=== PATIENT | female | born 1970 | race Caucasian/White ===

== ENCOUNTER 2018-07-01 12:11 | Outpatient (REF) | payer BC, SELFPAY ==
[2018-07-01 18:54] LABS: Cholesterol 175 mg/dL (50-200); Glucose 85 mg/dL (70-100); HDL Cholesterol 105 mg/dL (40-60); LDL CHOLESTEROL 69 mg/dL (<100); TSH (W/Ref FT4) 0.93 uIU/mL (0.358-3.74); Triglyceride 26 mg/dL (30-150)
== END 2018-07-01 12:31 ==
LOC: NCHCN 12:11
PROVIDERS: PCP Nurse Practitioner Family; Visit Provider Nurse Practitioner
DX: Z13.1 Encounter for screening for diabetes mellitus (principal); Z13.29 Encounter for screening for other suspected endocrine disorder; Z13.220 Encounter for screening for lipoid disorders
CPT/HCPCS: 80061; 82947; 83721; 84443

== ENCOUNTER 2018-07-10 12:29 | Outpatient (CLI) | payer BC, SELFPAY ==
--- NOTE | 2018-07-10 13:35 | DI.MAMMO_ITS ---
SYMPTOM/DIAGNOSIS: SCREENING, FOR[facility], [facility], Z00.00 MAMMOGRAMS: Mammograms were interpreted according to the usual protocol including computer analysis with CAD system, tomosynthesis and C view imaging. Comparison is with the prior examinations. No masses or microcalcifications are seen. There is nothing to suggest malignancy. IMPRESSION: Negative mammogram. Routine screening is recommended. Category 1 , breast density C. MQSA ASSESSMENT OF FINDINGS: Negative. Category 1. Patient will receive a letter notifying them of these results. Bi-RADS category C. The breasts are heterogeneously dense, which may obscure small masses.
== END 2018-07-10 12:49 ==
PROVIDERS: PCP Nurse Practitioner Family; Visit Provider Nurse Practitioner
DX: Z00.00 Encounter for general adult medical examination without abnormal findings (principal); Z12.31 Encounter for screening mammogram for malignant neoplasm of breast
CPT/HCPCS: 77063; 77067

== ENCOUNTER 2018-08-19 15:20 | Outpatient (REF) | payer BC, SELFPAY ==
[2018-08-19 19:46] LABS: Abs Immature Grans 0.01 k/cumm (0.0-0.09); Absolute Basophil Count 0.01 k/cumm (0.0-0.2); Absolute Eosinophil Count 0.12 k/cumm (0.0-0.7); Absolute Lymphocyte Count 1.65 k/cumm (1.2-3.4); Absolute Monocyte Count 0.49 k/cumm (0.11-0.7); Absolute Neutrophil Count 4.14 k/cumm (1.2-6.7); Basophils % 0.2; Eosinophils % 1.9; HCT 40.5 % (36.0-46.0); HGB 13.3 g/dL (12.0-15.5); Immature Grans % 0.2; Lymphocytes % 25.7; Mean Corp. HGB Concentration 32.8 g/dL (32.0-36.0); Mean Corpuscular Hemoglobin 32.7 pg (27.0-33.0); Mean Corpuscular Volume 99.5 fL (80-95); Monocytes % 7.6; Neutrophils % 64.4; Platelet Count 163 x1000/uL (130-400); RBC 4.07 m/cumm (4.00-5.20); RBC Distribution Width 13.3 % (11.7-14.6); White Blood Cell Count 6.42 k/cumm (4.4-10.8)
[2018-08-19 19:57] LABS: ALT 26 U/L (12-78); AST 17 U/L (15-37); Albumin 3.9 g/dL (3.4-5.0); Alkaline Phosphatase 43 U/L (46-116); Anion Gap 9.4 mmol/L (3-11); BUN 13 mg/dL (7-18); Bilirubin, Total 0.4 mg/dL (0.2-1.0); CO2 25.6 mmol/L (21.0-32.0); CREATININE 0.67 mg/dL (0.55-1.02); Calcium 8.5 mg/dL (8.5-10.1); Chloride 104 mmol/L (98-107); Glucose 81 mg/dL (70-100); Potassium 4.1 mmol/L (3.5-5.1); Sodium 139 mmol/L (136-145); Total Protein 6.5 g/dL (6.4-8.2)
[2018-08-19 21:06] LABS: ESR 5 MM/HR (0-20)
[2018-08-21 14:14] LABS: ANA Interpretation Negative (NEGAT)
== END 2018-08-19 15:40 ==
LOC: NCHCN 15:20
PROVIDERS: PCP Nurse Practitioner Family; Visit Provider Nurse Practitioner
DX: L29.9 Pruritus, unspecified (principal)
CPT/HCPCS: 80053; 85652; 85025; 86038

== ENCOUNTER 2018-10-13 10:53 | Day surgery (SDC) | payer BC, SELFPAY ==
--- NOTE | 2018-10-13 06:52 | W.COLOREPORT ---
Date of service: 10/13/18 Time of Service: 13:26 Colonoscopy Report Date of procedure: 10/13/18 Pre-op diagnosis general: Colon Cancer screening/ Family history of colon cancer Post-op diagnosis procedure note: other (Colon polyps) Procedure: Colonoscopy with polypectomy by hot snare and cold forceps Surgeon: Nathaly Jaime Anesthesia proc note operative: MAC (Katherine Saravia, POLICE DEPARTMENT SECRETARY/ ASA 2) Estimated blood loss (mL): 5 Pathology: other (3 polyps) Complications: None Disposition: same day Indications: Pleasant 48-year-old female who was seen in the office for a screening colonoscopy. She has a remote family history of colon cancer in a maternal grandmother. Risks, benefits, complications were reviewed with her and she wished to proceed. No guarantees were given or implied. Prep: Miralax/Dulcolax Procedure Start Time: 13:26 Procedure End Time: 13:57 Retraction Time: 17 minutes Findings: 3 polyps removed. One in the ascending colon, one larger adenomatous polyp in the distal transverse colon and 2 small sigmoid polyps Grade 1 internal hemorrhoids Procedure Description: After informed consent was obtained the patient was taken to the procedure room and placed in a left decubitous position. Monitors were applied and a time out was done. The patients name, date of , procedure, allergies to medications and metal in their body was reviewed. The patient was then sedated. Once sedated and comfortable a rectal exam was done. External exam was normal. Internal exam revealed a normal sphincter tone and no palpable masses. The scope was then introduced and retro-flexed. Grade I internal hemorrhoids were identified. The scope was then advanced to the cecum without difficulty. The TI and appendiceal orifice were identified. The prep was good. The scope was then slowly retracted over 17 minutes back into the rectum. Polyps were removed in the ascending, transverse and sigmoid colon. The polyp in the transverse colon was removed with a hot snare, the others with cold forceps. The scope was removed and the patient was woken up and taken back to Same day surgery in stable condition. The patient tolerated the procedure well and there were no immediate complications. Follow up: The patient should follow up in 3-5 years unless they develop changes in bowel habits or other new gastrointestinal complaints.
--- NOTE | 2018-10-13 06:53 | W.PM.DSUDISC ---
Discharge Plan Disposition Patient Disposition: HOME Condition: Good Discharge Details Reason For Visit: SCREENING Attending Provider: Nathaly Jaime Primary Care Provider: Elba Lopez Home Meds and New Rx's Prescriptions: Continued valacyclovir 1,000 MG tablet 1,000 mg PO BID Qty: 20 RF: 0 Discontinued bisacodyl [Dulcolax (bisacodyl)] 5 mg tablet,delayed release (DR/EC) 5 mg PO ONCE Qty: 4 RF: 0 polyethylene glycol 3350 17 gram/dose powder 255 g PO ONCE Qty: 255 RF: 0 Discharge Instructions Instructions: Colonoscopy (DC), Colorectal Polyps (DC) Additional Instructions: Findings: 4 polyps small internal hemorrhoids Follow up: 3-5 years Please call if you develop: fevers >101.5 Nausea or Vomiting Abdominal pain that is not transient DAY SURGERY UNIT POST COLONOSCOPY INSTRUCTIONS 1. Because there will be medication in your system for the next 24 hours, you may feel a little sleepy. Your coordination will be affected. Therefore: a. Do not drive or operate dangerous equipment for 24 hours. b. Do not drink alcohol beverages for 24 hours (not even beer). c. Plan to go home and rest for the day. 2. Generally there are no restrictions on your activity after a day or so has gone by, but you may feel a bit fatigued for a few days. 3 After you arrive home you may have a light meal and return to a normal diet as you can tolerate it without feeling sick to your stomach. 4. After surgery, you may feel pain or discomfort. This should be only transient, but if it persists please contact your doctor. 5. If there are any questions regarding the findings of your procedure, please feel free to contact your doctor. 6. If you are unable to contact your doctor with a problem, contact the hospital at [phone]. 7. Continue all your regular medications unless directed otherwise. I understand the above instructions and have no questions. Signature of Patient or Responsible Adult Escort Date/Time Name of Responsible Adult Escort Signature of Nurse Date/Time Activity:: Activity as Tolerated Diet:: As Tolerated Discharge Orders Discharge Orders: Discharge Order (Routine); Ordered 10/13/18 Ordered By: Nathaly Jiame DS: Diagnosis Discharge Diagnosis (1) Colon polyps: Status: Acute (2) S/P colonoscopy: Status: Acute
[2018-10-13 11:10] VITALS: BP 124/83; PULSE 74; RESP 16; TEMP 36.6; O2SAT 100
[2018-10-13] MEDS: Lactated Ringers 1,000 ML 80 ML IV ×2 (11:50→13:56)
--- NOTE | 2018-10-13 13:34 | BOWEL_PTH ---
PATIENT: Kitty Mesa LOC: [facility] U#:[id number] AGE/SX: 48/F ROOM: RE10/13/[address]: Nathaly Jaime MD : [id number] BED: DIS: 10/13/2018 SPEC #: [id number] RECD: 10/13/18 17:32 STATUS: HERNANDO RE #: [id number] JIN: 10/13/18 13:[address]: Nathaly Jaime DEPT: Surgical Specimen RECD BY: Chiquis Hamilton ENTERED: 10/13/18 17:33 SP TYPE: Bowel OTHR DR: Elba Lopez Tissues: 1 - BIOPSY BOWEL 2 - BIOPSY BOWEL 3 - BIOPSY BOWEL Procedures: GROSS AND MICRO LEVEL 4 Comments: [id number]
[2018-10-13 14:34] VITALS: BP 113/74; PULSE 56; RESP 16; TEMP 36.4; O2SAT 100
== END 2018-10-13 15:22 | disposition home or self-care (01) ==
LOC: SUR 10:53
PROVIDERS: PCP Nurse Practitioner; Visit Provider Surgery
PROC: 0DJD8ZZ Inspection of Lower Intestinal Tract, Via Natural or Artificial Opening Endoscopic (ICD-10-PCS; CPT 45378; principal; 2018-10-13 12:45)
DX: Z12.11 Encounter for screening for malignant neoplasm of colon (principal); D12.3 Benign neoplasm of transverse colon; D12.2 Benign neoplasm of ascending colon; D12.5 Benign neoplasm of sigmoid colon; Z80.0 Family history of malignant neoplasm of digestive organs
CPT/HCPCS: 45385; 45380; 88305

== ENCOUNTER 2022-01-19 20:55 | Outpatient (REF) | payer BC, SELFPAY ==
[2022-01-19 21:24] LABS: HCT 44.9 % (36.0-46.0); HGB 14.7 g/dL (11.2-15.7); MCH 32.4 pg (27.0-33.0); MCHC 32.7 % (32.0-36.0); MCV 98.9 fL (80-95); MPV 12.6 fL (8.0-11.0); Platelet Count 177 10^3/uL (130-400); RBC 4.54 10^6/uL (3.93-5.22); RDW 12.8 % (11.7-14.6); RDW-SD 46.8 fL; WBC 5.61 10^3/uL (4.4-10.8)
[2022-01-19 21:28] LABS: ESR 2 mm/hr (0-30)
[2022-01-19 21:33] LABS: ALT 26 U/L (14-59); AST 14 U/L (15-37); Albumin 4.4 g/dL (3.4-5.0); Alkaline Phosphatase 62 U/L (46-116); Anion Gap 8.2 mmol/L (3-11); BUN 14 mg/dL (7-18); Bilirubin, Total 0.7 mg/dL (0.2-1.0); C-Reactive Protein 0.14 mg/dL (0.0-0.3); CO2 28.8 mmol/L (21.0-32.0); CREATININE 0.8 mg/dL (0.55-1.02); Calcium 9.1 mg/dL (8.5-10.1); Chloride 104 mmol/L (98-107); Glucose 89 mg/dL (74-106); Potassium 4.3 mmol/L (3.5-5.1); Sodium 141 mmol/L (136-145); Total Protein 7.1 g/dL (6.4-8.2)
[2022-01-20 22:31] LABS: Rheumatoid Factor <8.6 IU/mL (<12.0)
[2022-01-22 10:14] LABS: Hepatitis C Ab w Rflx HCV PCR Negative (Negative)
[2022-01-22 10:59] LABS: HIV-1/2 Ag & Ab Screen Negative (Negative)
== END 2022-01-19 20:56 | disposition home or self-care (01) ==
LOC: NCHCN 20:55
PROVIDERS: PCP Nurse Practitioner; Visit Provider Nurse Practitioner Family
DX: M25.50 Pain in unspecified joint (principal); Z11.4 Encounter for screening for human immunodeficiency virus [HIV]; Z11.59 Encounter for screening for other viral diseases
CPT/HCPCS: 80053; 85027; 85652; 86803; 87389; 86140; 86431

== ENCOUNTER → 2022-09-27 01:11 | Outpatient (CLI) | payer BC, SELFPAY ==
--- NOTE | 2022-09-27 | DI.MAMMO_ITS ---
Exam(s) MAMMO SCREENING EXAM: MAMMO SCREENING CLINICAL HISTORY: SCREENING,Z12.39 TECHNIQUE: Mammograms were interpreted according to the usual protocol including computer analysis w [employer] CAD system, tomosynthesis and C-view imaging. COMPARISON: 2018 FINDINGS: The breasts are composed of heterogeneously dense fibroglandular densities, Breast Density category C . No suspicious masses or suspicious microcalcifications are seen. No skin thickening or abnormal axillary lymph nodes are seen. There has been no significant change from prior exams. IMPRESSION: BI-RADS Category 1, Negative mammogram. Yearly screening mammography is recommended. Breast Density Category C, heterogeneously Dense. The mammogram demonstrates the patient's breast tissue is dense. Dense breast tissue is very common a nd is not abnormal but dense breast tissue can make it harder to find cancer on a mammogram. Also, de nse breast tissue may increase breast cancer risk. This information about the result of the mammogram report was provided to the patient to raise their awareness. Use this report when you speak with the patient about their risks for breast cancer, which includes their family history. At that time, you may recommend additional screening tests (Ultrasound or MRI) as they might be useful based on their r isk. A negative radiographic report should not delay biopsy if a dominant or clinically suspicious mass is present. Up to ten percent of cancers are not identified on mammography. A negative report may reinforce clinical impression. Adenosis and dense breasts may obscure an underlying neoplasm. False positive reports average 6 to 10%.
== END ==
PROVIDERS: PCP Nurse Practitioner; Visit Provider Nurse Practitioner Family
DX: Z12.31 Encounter for screening mammogram for malignant neoplasm of breast (principal); R92.8 Other abnormal and inconclusive findings on diagnostic imaging of breast
CPT/HCPCS: 77063; 77067